=== PATIENT | female | born 1965 | race Caucasian/White ===

== ENCOUNTER 2020-07-06 16:22 | Outpatient (CLI) | payer OTHER, SELFPAY ==
--- NOTE | ~2020-07-06 | MM_ITS ---
EXAMINATION: MM screening trav BI w bailey HISTORY: Screening TECHNIQUE: Craniocaudal and mediolateral oblique 3-D tomosynthesis images were obtained and synthetic 2-D images were generated. CAD analysis was submitted and interpreted. COMPARISON: Comparison to multiple prior studies sequentially, with oldest reviewed study dated 01/10. BREAST PARENCHYMAL COMPOSITION: There are scattered areas of fibroglandular density. FINDINGS: There is no evidence of suspicious mass, calcification, or architectural distortion to sugg est malignancy in either breast. There has been no suspicious interval change. IMPRESSION: 1. No mammographic evidence of malignancy. 2. Recommend routine screening mammography in one year. BI-RADS Category 1: Negative Reviewed, dictated and finalized at location A. 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
== END 2020-07-06 16:23 | disposition home or self-care (01) ==
PROVIDERS: PCP Family Medicine; Visit Provider Obstetrics & Gynecology
DX: Z12.31 Encounter for screening mammogram for malignant neoplasm of breast (principal)
CPT/HCPCS: 77063; 77067

== ENCOUNTER 2021-04-28 07:36 | Outpatient (CLI) | payer OTHER, SELFPAY ==
--- NOTE | 2021-04-28 07:48 | ECG_ITS ---
Measurements Intervals [place] Rate: 68 P: 38 TX: 168 QRS: -35 QRSD: 93 T: -19 QT: 387 QTc: 414 Interpretive Statements SINUS RHYTHM LEFT AXIS DEVIATION INCOMPLETE RIGHT BUNDLE BRANCH BLOCK LOW QRS VOLTAGE IN PRECORDIAL LEADS BORDERLINE R WAVE PROGRESSION, ANTERIOR LEADS BORDERLINE T WAVE ABNORMALITY- ANT/INF LEADS BASELINE ARTIFACT- II, III, AVF BORDERLINE ECG Electronically Signed On 04-28-2021 9:37:58 CDT by Joaquim Merino D.O.
== END 2021-04-28 07:37 | disposition home or self-care (01) ==
PROVIDERS: PCP Family Medicine; Visit Provider Nurse Practitioner Family
DX: E03.9 Hypothyroidism, unspecified (principal); I10 Essential (primary) hypertension
CPT/HCPCS: 93005

== ENCOUNTER 2021-07-12 16:39 | Outpatient (CLI) | payer OTHER, SELFPAY ==
--- NOTE | ~2021-07-12 | MM_ITS ---
EXAMINATION: MM screening trav BI w bailey HISTORY: Screening mammogram TECHNIQUE: Craniocaudal and mediolateral oblique 3-D tomosynthesis images were obtained and synthetic 2-D images were generated. CAD analysis was submitted and interpreted. COMPARISON: 07/06/2020, 10/13/2018, 10/06/2017 bilateral screening mammogram examinations BREAST PARENCHYMAL COMPOSITION: There are scattered areas of fibroglandular density. FINDINGS: There is no evidence of suspicious mass, calcification, or architectural distortion to sugg est malignancy in either breast. There has been no suspicious interval change. IMPRESSION: 1. No mammographic evidence of malignancy. 2. Recommend routine screening mammography in one year. BI-RADS Category 1: Negative Reviewed, dictated and finalized at location A. [employer]
== END 2021-07-12 16:40 | disposition home or self-care (01) ==
PROVIDERS: PCP Family Medicine; Visit Provider Obstetrics & Gynecology
DX: Z12.31 Encounter for screening mammogram for malignant neoplasm of breast (principal)
CPT/HCPCS: 77063; 77067

== ENCOUNTER 2022-03-14 10:25 | Outpatient (RCR) | payer OTHER, SELFPAY ==
--- NOTE | 2022-03-14 11:43 | PTOPEVAL ---
Thank you for referring Betsy Johnson to [facility].? Betsy is scheduled to be seen for therapy? 0-2 x/week for 5 weeks. Please review, sign, date and return this plan of care MARJORIE. I agree with and certify that the following plan of care is medically necessary. Referring Physician Date Attending Provider: Ralph Thomas MD Past Medical History Source of Past Medical History Patient Neurological History Hx Migraine Yes: since thyroid med, no migraines Cardiovascular History Hx Hypertension Yes: meds Hx Other Cardiac Disorders Yes: monitoring mitral valve leak Respiratory History Hx Respiratory Disorders No Significant History Gastrointestinal History Hx Gastrointestinal Disorders No Significant History Musculoskeletal History Hx Musculoskeletal Disorders No Significant History Endocrine History Hx Hypothyroidism Yes: meds HEENT History Hx Sinus Problems Yes Hx Other HEENT Disorders Yes: sinus infections; seasonal allergies; bifocals Evaluation Information Problem Diagnosis BPPV/ vestibular therapy Onset Jun 2021 Prior Level of Function Activity Level (Last 3 Months) 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 Activity of Daily Living Ability Independent Indoor/Home Mobility Independent Community Mobility Independent Stairs Ability Independent Functional Cognition (Planning, Shopping Independent , Taking Medications) Cooking Yes Cleaning Yes Laundry Yes Shopping Yes Driving Yes Pain Assessment Self Report Self Report Pain Level 0 Pain Score Pain Score 0: Self Report Cervical ROM Comments in sitting, full cervical ROM and no pain reported Bed Mobility Assessment Bed Mobility Overall Bed Mobility Ability Independent Gait Assessment Gait Assessment Ambulation Ability Independent Additional Ambulation Comments no loss of balance with walking in dept; Vestibular Evaluation Past Vestibular History Infection,Medication Changes, Sinus/Allergy Issues,Visual Issues Medical History Comments thyroid med increased dose about 2 months ago; history of sinus infections; last eye exam Jun 2021; history of motion sickness; MEDICATIONS: claritin, thyroid med, HTN med; Other Symptom
--- NOTE | 2022-03-25 13:09 | PCPTNOTE ---
Patient's appointment was cancelled due to staff out of the office.
--- NOTE | 2022-06-18 16:12 | PCPTNOTE ---
PHYSICAL THERAPY DISCHARGE 06-18-22 Attending Provider: Ralph Thomas MD LATE ENTRY Patient:Betsy Johnson Date of :1965 Patient has not returned for any further treatments since the initial evaluation for the diagnosis of BPPV, on 03/14/2022, therefore she will be discharged at this time. Thank you for referring this patient to [facility].
== END 2022-06-10 14:51 | disposition home or self-care (01) ==
LOC: ANHPT 10:25
PROVIDERS: PCP Family Medicine; Referring Provider Family Medicine; Visit Provider Family Medicine
DX: H81.10 Benign paroxysmal vertigo, unspecified ear (principal)
CPT/HCPCS: 97161; 97530

== ENCOUNTER 2023-01-22 16:18 | Outpatient (CLI) | payer OTHER, SELFPAY ==
--- NOTE | ~2023-01-22 | MM_ITS ---
EXAMINATION: MM screening [facility] BI w bailey HISTORY: Screening mammogram TECHNIQUE: Craniocaudal and mediolateral oblique 3-D tomosynthesis images were obtained and synthetic 2-D images were generated. CAD analysis was submitted and interpreted. COMPARISON: 07/12/2021, 07/06/2020, 10/13/2018 BREAST PARENCHYMAL COMPOSITION: There are scattered areas of fibroglandular density. FINDINGS: There is stable focal asymmetry in the upper outer quadrant of the right breast. No suspici ous mass, calcification, or architectural distortion are identified in either breast to suggest malig maxine. There has been no suspicious interval change. IMPRESSION: 1. No mammographic evidence of malignancy. 2. Recommend routine screening mammography in one year. BI-RADS Category 2: Benign finding(s). Reviewed, dictated and finalized at location A.
== END 2023-01-22 16:19 | disposition home or self-care (01) ==
LOC: ANHIMG 16:20
PROVIDERS: PCP Family Medicine; Visit Provider Obstetrics & Gynecology
DX: Z12.31 Encounter for screening mammogram for malignant neoplasm of breast (principal)
CPT/HCPCS: 77063; 77067

== ENCOUNTER 2024-09-30 12:05 | Emergency (ER) | payer OTHER, SELFPAY ==
--- NOTE | ~2024-09-30 | CT_ITS ---
EXAMINATION: CT abdomen pelvis w con DATE: 09/30/2024 17:26 INDICATION: Abdominal pain. Gastrointestinal hemorrhage. TECHNIQUE: Computed tomography (CT) of the abdomen and pelvis was performed with 100 mL Omnipaque 350 intravenous contrast. Automated exposure control and iterative reconstruction technique were employe d. The dose-length product was 643.42 mGy-cm. COMPARISON: None. FINDINGS: The visualized portions of the lung bases are clear without pneumonia or pleural effusion. The heart size is normal. No pericardial effusion. The liver, gallbladder, spleen, pancreas, adrenal glands, and right kidney are normal. There is a 7 mm cyst in left kidney. There is wall thickening of the transverse colon with surrounding fat stranding, consistent with colitis. The appendix is normal . There are no dilated loops of bowel. There are no pathologically enlarged lymph nodes. There is tra ce pelvic ascites. There is mild lumbar spondylosis. IMPRESSION: 1. Colitis involving the transverse colon. Reviewed, dictated and finalized at location A. [facility]
[2024-09-30 12:10] VITALS: BP 143/85; PULSE 100; RESP 16; TEMP 36.4; O2SAT 97
--- NOTE | 2024-09-30 12:41 | ED_ITS ---
HPI - GI Bleed General Chief complaint: GI Bleed <NUVIA Hernandez Last Filed: 10/01/24 17:23> Stated complaint: rectal bleeding x1d <NUVIA Hernandez Last Filed: 10/01/24 17:23> Time Seen by Provider: 09/30/24 12:41 <Suzi Costello PA-C - Last Filed: 10/01/24 17:23> Focused HPI: This is a 59 year old female that presents to the ER for abdominal cramping. Reports bloody stools. Started last night. Reports some vomiting. Reports bright red blood. No anticoagulation. No history of similar occurence. GENERAL: Well-appearing, well-nourished, and in no acute distress. HEAD: Normocephalic, atraumatic. CHEST: Clear to auscultation. ?No respiratory distress. HEART: Regular rate and rhythm.? NEURO: ?Alert and oriented x3. Patient screened in triage and initial orders placed.? ?Additional care and disposition to be based upon?diagnostic testing and treatment. <NUVIA Hernandez Last Filed: 10/01/24 17:23> Related Data Home medications: Home Medications ?Medication ?Instructions ?Recorded ?Confirmed ?Last Taken ?Type multivitamin (Daily Multi-Vitamin 1 tablet PO DAILY 09/16/19 04/22/24 Unknown History tablet) biotin 1,000 mcg chewable tablet 1,000 mcg PO DAILY 12/10/21 04/22/24 Unknown History calcium carbonate (Calcium 600) 300 mg PO DAILY 12/10/21 04/22/24 Unknown History <NUVIA Hernandez Last Filed: 10/01/24 17:23> Allergies/Adverse reactions: Allergies Allergy/AdvReac Type Severity Reaction Status Date / Time penicillin G Allergy Unknown Unknown Verified 09/30/24 12:07 Penicillins Allergy Unknown Unknown Verified 09/30/24 12:07 sulfanilamide Allergy Unknown Unknown Verified 09/30/24 12:07 <NUVIA Hernandez Last Filed: 10/01/24 17:23> Review of Systems 2 Review of Systems: All systems reviewed & are unremarkable except as noted in HPI and below <Suzi Costello PA-C - Last Filed: 10/01/24 17:23> [facility] Past Medical History Medical History: Medical History Allergies Amenorrhea BMI 29.0-29.9,adult BMI 30.0-30.9,adult BPV (benign positional vertigo) Mitral valve prolapse Thyroid disease Vaginal delivery <Suzi Costello PA-C - Last Filed: 10/01/24 17:23> Surgical History Surgical History: Surgical History Muse teeth removed <Suzi Costello PA-C - Last Filed: 10/01/24 17:23> Family History Family History: Family History Father Hypertension Malignant neoplasm of prostate Mother Hypertension Family history of coronary artery disease Heart disease Abnormal thyroid stimulating hormone level Thyroid activity decreased Sibling Hypertension Carcinoma of colon Family history of diabetes mellitus in first degree relative Diabetes mellitus COVID-19 Other Alcoholism Asthma <Suzi Costello PA-C - Last Filed: 10/01/24 17:23> Social History Social History: Social History Smoking status: Never smoker Second hand tobacco smoke exposure: No Alcohol intake: current Alcohol use details: 3 per month Substance use: never Substance use type: does not use Lack of Transportation: No Lack of Food: Never True Current Housing: I Have Housing Concerned About Future Housing: No Difficulty Paying Gas/Electric Bills: No Difficulty Paying for Meds: No Currently Unemployed: No Education: Bachelor's Degree Difficulty w/ Childcare or Family Care: No Living arrangements: with family Occupation/Education: occupation 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 Well-appearing Head: atraumatic. EYES: EOMI, NOSE: Atraumatic NECK: Trachea midline RESPIRATORY: No increased rate of breathing CTAB CARDIOVASCULAR: RRR, ABDOMINAL: Soft nontender no guarding rebound MUSCULOSKELETAl: No obvious deformities NEURO: Alert. Moving 4/4 extremities SKIN:: Warm, dry. Normal color PSYCHIATRIC: Normal affect <Luis Carter MD - Last Filed: 09/30/24 18:42> Course Vital Signs Vital signs: Vital Signs Temperature 97.6 F 09/30/24 12:10 Pulse Rate 100 09/30/24 12:10 Respiratory Rate 16 09/30/24 12:10 Blood Pressure 143/85 H 09/30/24 12:10 Pulse Oximetry 97 09/30/24 12:10 Temperature 97.6 F 09/30/24 12:10 Pulse Rate 89 09/30/24 20:30 Respiratory Rate 14 09/30/24 20:30 Blood Pressure 120/85 09/30/24 20:30 Pulse Oximetry 100 09/30/24 20:30 <Suzi Costello PA-C - Last Filed: 10/01/24 17:23> Vital Signs Temperature 97.6 F 09/30/24 12:10 Pulse Rate 100 09/30/24 12:10 Respiratory Rate 16 09/30/24 12:10 Blood Pressure 143/85 H 09/30/24 12:10 Pulse Oximetry 97 09/30/24 12:10 Temperature 97.6 F 09/30/24 12:10 Pulse Rate 89 09/30/24 20:30 Respiratory Rate 14 09/30/24 20:30 Blood Pressure 120/85 09/30/24 20:30 Pulse Oximetry 100 09/30/24 20:30 <Luis Carter MD - Last Filed: 09/30/24 18:42> MDM - GI Bleed MDM Narrative Medical decision making narrative: -Course: 51-year-old female presenting with abdominal pain and bloody diarrhea. Found to have transverse colitis on CT imaging. White count is 13. Other than that she is well-appearing with stable vital signs and benign abdominal exam. Patient will be discharged on antibiotics with GI follow-up. Given return precautions. -DDX includes but is not limited to: Colitis, diverticulitis, gastroenteritis <Luis Carter MD - Last Filed: 09/30/24 18:42> Lab Data Result diagrams: 09/30/24 12:54 09/30/24 12:54 <Suzi Costello PA-C - Last Filed: 10/01/24 17:23> Labs: Lab Results 09/30/24 Range/Units 12:54 WBC 13.0 H (4.5-10.0) K/mm3 RBC 4.95 (4.2-5.4) M/mm3 Hgb 12.5 (12.0-15.0) g/dL Hct 39.4 (37.0-47.0) % MCV 79.6 L (80-100) fl MCH 25.3 L (26-34) pg MCHC 31.7 L (32-36) g/dl RDW 15.5 H (11.5-14.5) % Plt Count 357 (150-375) k/mm3 MPV 10.6 H (7.4-10.4) fl Immature Gran % (Auto) 0.3 (0-0.5) % Neut % (Auto) 74.0 H (45.5-73.1) % Lymph % (Auto) 18.3 (18.3-44.2) % [place] % (Auto) 6.5 (2.6-8.5) % Eos % (Auto) 0.4 (0-4.4) % Baso % (Auto) 0.5 (0.2-1.2) % Lymph # (Auto) 2.37 (0.9-3.2) K/mm3 [place] # (Auto) 0.8 H (0.1-0.6) K/mm3 Eos # (Auto) 0.1 (0-0.3) K/mm3 Baso # (Auto) 0.1 (0.0-0.1) K/mm3 Abs Immat Gran (auto) 0.04 H (0.00-0.031) K/mm3 Absolute Neuts (auto) 9.6 H (1.3-6.7) K/mm3 Absolute Nucleated RBC 0.000 (0.0-0.012) K/mm3 Nucleated RBC % 0.0 (0.0-0.2) % PT 13.9 (11.1-14.7) Seconds INR 1.0 APTT 28.3 (22.3-36.8) Seconds Sodium 138 (137-145) mmol/L Potassium 3.4 (3.4-5.0) mmol/L Chloride 98 (98-107) mmol/L Carbon Dioxide 28 (22-30) mmol/L Anion Gap 12 (4-12) mmol/L BUN 14 (7-17) mg/dL Creatinine 0.85 (0.7-1.0) mg/dL Estim Creat Clear Calc Not Reportable Estimated GFR > 60 (59 - ) Glucose 97 (65-110) mg/dL Calcium 9.4 (8.4-10.2) mg/dL Total Bilirubin 1.5 H (0.2-1.3) mg/dL AST 46 H (14-36) U/L ALT 32 (6-35) U/L Alkaline Phosphatase 108 (38-126) U/L Total Protein 8.0 (6.3-8.2) g/dL Albumin 4.6 (3.5-5.1) g/dL Blood Type O Positive Antibody Screen Negative <Suzi Costello PA-C - Last Filed: 10/01/24 17:23> Lab Results 09/30/24 Range/Units 12:54 WBC 13.0 H (4.5-10.0) K/mm3 RBC 4.95 (4.2-5.4) M/mm3 Hgb 12.5 (12.0-15.0) g/dL Hct 39.4 (37.0-47.0) % MCV 79.6 L (80-100) fl MCH 25.3 L (26-34) pg MCHC 31.7 L (32-36) g/dl RDW 15.5 H (11.5-14.5) % Plt Count 357 (150-375) k/mm3 MPV 10.6 H (7.4-10.4) fl Immature Gran % (Auto) 0.3 (0-0.5) % Neut % (Auto) 74.0 H (45.5-73.1) % Lymph % (Auto) 18.3 (18.3-44.2) % [place] % (Auto) 6.5 (2.6-8.5) % Eos % (Auto) 0.4 (0-4.4) % Baso % (Auto) 0.5 (0.2-1.2) % Lymph # (Auto) 2.37 (0.9-3.2) K/mm3 [place] # (Auto) 0.8 H (0.1-0.6) K/mm3 Eos # (Auto) 0.1 (0-0.3) K/mm3 Baso # (Auto) 0.1 (0.0-0.1) K/mm3 Abs Immat Gran (auto) 0.04 H (0.00-0.031) K/mm3 Absolute Neuts (auto) 9.6 H (1.3-6.7) K/mm3 Absolute Nucleated RBC 0.000 (0.0-0.012) K/mm3 Nucleated RBC % 0.0 (0.0-0.2) % PT 13.9 (11.1-14.7) Seconds INR 1.0 APTT 28.3 (22.3-36.8) Seconds Sodium 138 (137-145) mmol/L Potassium 3.4 (3.4-5.0) mmol/L Chloride 98 (98-107) mmol/L Carbon Dioxide 28 (22-30) mmol/L Anion Gap 12 (4-12) mmol/L BUN 14 (7-17) mg/dL Creatinine 0.85 (0.7-1.0) mg/dL Estim Creat Clear Calc Not Reportable Estimated GFR > 60 (59 - ) Glucose 97 (65-110) mg/dL Calcium 9.4 (8.4-10.2) mg/dL Total Bilirubin 1.5 H (0.2-1.3) mg/dL AST 46 H (14-36) U/L ALT 32 (6-35) U/L Alkaline Phosphatase 108 (38-126) U/L Total Protein 8.0 (6.3-8.2) g/dL Albumin 4.6 (3.5-5.1) g/dL Blood Type O Positive Antibody Screen Negative <Luis Carter MD - Last Filed: 09/30/24 18:42> Imaging Data Radiologist's impression: ITS Impressions Abdomen/Pelvis CT 09/30/24 17:27 IMPRESSION: 1. Colitis involving the transverse colon. <Suzi Costello PA-C - Last Filed: 10/01/24 17:23> Critical Care Time Critical Care Time Critical Care Time: No <Suzi Costello PA-C - Last Filed: 10/01/24 17:23> Discharge Plan Discharge Clinical Impression: Colitis <NUVIA Hernandez Last Filed: 10/01/24 17:23> Patient Disposition: Home, Self-Care <NUVIA Hernandez Last Filed: 10/01/24 17:23> Condition: Stable <NUVIA Hernandez Last Filed: 10/01/24 17:23> Instructions: Antibiotic Form, Colitis (ED) <NUVIA Hernandez Last Filed: 10/01/24 17:23> Additional Instructions: You were seen in the ED for abdominal pain. You have colitis. Please complete the antibiotics as instructed. Use Tylenol for pain control, Zofran for nausea. If you are getting worse, worsening abdominal pain or intractable nausea vomiting white return to the ED for re-evaluation <NUVIA Hernandez Last Filed: 10/01/24 17:23> Patient Language: Citizen Of [place] <NUVIA Hernandez Last Filed: 10/01/24 17:23> Prescriptions: New ciprofloxacin HCl [Cipro] 500 mg tablet 500 mg PO Q12H Qty: 10 0RF metronidazole 500 mg tablet 500 mg PO Q8H 5 Days Qty: 15 0RF acetaminophen 500 mg tablet 1,000 mg PO TID PRN (Reason: juan) 7 Days Qty: 42 0RF ondansetron 4 mg tablet,disintegrating 4 mg PO Q8H PRN (Reason: nausea and vomiting) Qty: 30 0RF No Action multivitamin [Daily Multi-Vitamin] Tablet 1 tablet PO DAILY calcium carbonate [Calcium 600] 600 mg calcium (1,500 mg) tablet 300 mg PO DAILY biotin 1,000 mcg tablet,chewable 1,000 mcg PO DAILY benazepril-hydrochlorothiazide 10-12.5 mg tablet 1 tablet PO DAILY Qty: 90 1RF levothyroxine 75 mcg tablet 75 mcg PO DAILY Qty: 90 1RF Rx Instructions: TAKE 1 TABLET BY MOUTH EVERY DAY <NUVIA Hernandez Filed: 10/01/24 17:23> Follow-up/Referrals: Ralph Thomas MD [Primary Care Provider] - <NUVIA Hernandez Last Filed: 10/01/24 17:23> Stand Alone Forms: Work/School Release IP <Suzi Costello PA-C - Last Filed: 10/01/24 17:23>
[2024-09-30 13:07] LABS: Basophils Absolute Auto 0.1 K/mm3 (0.0-0.1); Basophils Percent Auto 0.5 % (0.2-1.2); Eosinophils Absolute Auto 0.1 K/mm3 (0-0.3); Eosinophils Percent Auto 0.4 % (0-4.4); Hematocrit 39.4 % (37.0-47.0); Hemoglobin 12.5 g/dL (12.0-15.0); Immature Granulocyte Absolute 0.04 K/mm3 (0.00-0.031); Immature Granulocyte Percent A 0.3 % (0-0.5); Lymphocytes Absolute Auto 2.37 K/mm3 (0.9-3.2); Lymphocytes Percent Auto 18.3 % (18.3-44.2); Mean Corpuscular HGB Conc 31.7 g/dl (32-36); Mean Corpuscular Hemoglobin 25.3 pg (26-34); Mean Corpuscular Volume 79.6 fl (80-100); Mean Platelet Volume 10.6 fl (7.4-10.4); Monocytes Absolute Auto 0.8 K/mm3 (0.1-0.6); Monocytes Percent Auto 6.5 % (2.6-8.5); Neutrophils Absolute Auto 9.6 K/mm3 (1.3-6.7); Platelet Count Result 357 k/mm3 (150-375); Red Blood Count 4.95 M/mm3 (4.2-5.4); Red Cell Distribution Width 15.5 % (11.5-14.5)
[2024-09-30 13:26] LABS: Prothrombin Time 13.9 Seconds (11.1-14.7)
[2024-09-30 13:27] LABS: Partial Thromboplastin Time 28.3 Seconds (22.3-36.8)
[2024-09-30 13:44] LABS: Alanine Aminotransferase 32 U/L (6-35); Albumin Level 4.6 g/dL (3.5-5.1); Alkaline Phosphatase 108 U/L (38-126); Anion Gap 12 mmol/L (4-12); Aspartate Amino Transferase 46 U/L (14-36); Bilirubin,Total 1.5 mg/dL (0.2-1.3); Blood Urea Nitrogen 14 mg/dL (7-17); Calcium 9.4 mg/dL (8.4-10.2); Carbon Dioxide 28 mmol/L (22-30); Chloride 98 mmol/L (98-107); Estimated Glomerular Filt Rate > 60; Glucose 97 mg/dL (65-110); Potassium 3.4 mmol/L (3.4-5.0); Sodium 138 mmol/L (137-145)
[2024-09-30 18:00] VITALS: BP 150/78; PULSE 66; RESP 16; O2SAT 96
[2024-09-30] MEDS: metroNIDAZOLE 500 MG/ISO 100ML 500 MG/100 ML BAG 100 MG IVPB (18:45)
[2024-09-30 20:30] VITALS: BP 120/85; PULSE 89; RESP 14; O2SAT 100
== END 2024-09-30 20:30 | disposition home or self-care (01) ==
PROVIDERS: Physician Assistant; Emergency Provider Emergency Medicine; PCP Family Medicine
DX: K52.9 Noninfective gastroenteritis and colitis, unspecified (principal); I34.1 Nonrheumatic mitral (valve) prolapse; E07.9 Disorder of thyroid, unspecified; Z79.899 Other long term (current) drug therapy
CPT/HCPCS: 36415; 74177; 80053; 85025; 85610; 85730; 86850; 86900; 86901; 96365; 96368; 99284; J0696; J1836; Q9967